=== PATIENT | male | born 1970 | race Caucasian/White ===

== ENCOUNTER 2025-02-25 08:08 | Outpatient (AMB) | payer OTHER, SELFPAY ==
--- NOTE | 2025-02-25 08:23 | A.OFFVIS_ITS ---
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 Patient was referred by his PCP to discuss surgical intervention due to vargus deformity. Patient reports his pain has been present for about 9 years. States after about 4 hours of activity he will have a sharp pain at the lateral aspect of knee and within the 5 hours swelling presents. No previous treatment. Denies injury. History of varicose veins. 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 He states after ab out 4 hrs he has severe pain along with swelling. He is a retired [employer] worker. 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 He has difficulty with stairs and prolonged walking. He is an active smoker , 1 1/2 ppd . Denies alcohol and rec drug use. The patient is at a point his knee pain is significantly impacting his ability to perform daily activities. He states he has gained about 100 lb due to his limited activity. 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 Full range of motion. Good quad strength. Neurovascularly intact. Results Reviewed Results Reviewed: X-rays of the left knee obtained in the office today and reviewed by me show severe osteoarthritis with valgus deformity. Assessment & Plan Assessment & Plan (1) Osteoarthritis of left knee: Code(s): M17.12 - Unilateral primary osteoarthritis, left knee Category: Medical Plan: We had a lengthy discussion about the extent of his OA and options available which include surgical intervention. He is interested in pursuing Total knee art hroplasty to improve his functional capacity and daily activities. I explained to him the procedure in detail, the hospital stay and details about post op rehab and precautions. He does understand all this and would like to move forward. I did put him in contact with our Nurse Navigator, Marianna who will set him up with pre op planning and book accordingly. He does understand he needs to lose weight and also quit smoking. I would like him to make an appointment with Dr. Bosch in 2 months. I did send him to physical therapy for prehab. All questions were answered. Orders: Orders XR knee LT 3V Today M25.562 - Pain in left knee PT Evaluation and Treatment Today M17.12 - Unilateral primary osteoarthritis, left knee Coding Level of Care Code New Pt Level 4 (27735) Complex EM visit Add On G2211 Diagnoses Osteoarthritis of left knee M17.12
[2025-02-25 08:27] VITALS: BMI 43.7
== END 2025-02-25 09:05 | disposition home or self-care (01) ==
LOC: HO.HOS 08:09
PROVIDERS: PCP Internal Medicine; Visit Provider Physician Assistant
DX: M17.12 Unilateral primary osteoarthritis, left knee (principal)
CPT/HCPCS: 99203

== ENCOUNTER → 2025-02-25 08:11 | Outpatient (BNV) | payer OTHER, SELFPAY | PROVIDERS: Visit Provider Radiology Diagnostic Radiology | DX: M25.562 Pain in left knee (principal) | CPT/HCPCS: 73562 ==

== ENCOUNTER 2025-02-25 11:07 | Outpatient (REF) | payer OTHER, SELFPAY ==
--- NOTE | ~2025-02-25 | XR_ITS ---
CLINICAL HISTORY: M25.562 - Pain in left knee 2 views of the left knee. AP views of the bilateral knees. Weight bearing views were obtained. COMPARISON: None provided. FINDINGS: Left knee: No appreciable suprapatellar joint effusion. Patellar enthesophyte present. Lateral joint space narrowing. Tricompartment osteophytes. Tibial spine spurring. Chondrocalcinosis. Visualized portions of the distal left femur, patella, and proximal tibia and fibula appear intact. Limited AP view of the right knee: Medial joint space narrowing. Osteophytes present along the medial and lateral joint spaces. Visualized portions of the distal right femur and proximal tibia and fibula appear intact. IMPRESSION: 1. No radiographic evidence of acute injury to the left knee. 2. [id number] degenerative changes of the left knee most pronounced along the lateral compartment. Chondrocalcinosis. This document has been electronically signed by: Ti Dean MD on 02/26/2025 13:35:17
== END 2025-02-25 11:08 | disposition home or self-care (01) ==
LOC: HO.HOSX 11:07
PROVIDERS: Visit Provider Physician Assistant
DX: M17.12 Unilateral primary osteoarthritis, left knee (principal)
CPT/HCPCS: 73562; 99202

== ENCOUNTER 2025-04-22 08:43 | Outpatient (AMB) | payer OTHER, SELFPAY ==
--- NOTE | 2025-04-22 08:49 | MHC.OFFVIS ---
Vital Signs 04/22/25 08:53 Height 6 ft 2 in Weight 350 lb BMI 44.9 Intake Visit Reasons: OV-Left knee-discuss TKA w/NE Intake Note: Ric is a 54 year old male who presents today for a follow up of his Left Knee OA, to discuss TKA. He was last seen and referred by Chepe Balbuena. Has started physical therapy with [facility]. BMI: 43.7 Current, everyday tobacco smoker. Allergies No Known Allergies (No Known Allergies*) Allergy (Verified 04/22/25 08:49) HPI HPI OV-Left knee-discuss TKA w/NE: Details: Ric is 54 year old male who presents today for a follow up of his Left Knee OA, to discuss TKA. He was last seen and referred by Chepe Balbuena. Has started physical therapy with [facility]. His BMI: 43.7 and he is a daily smoker. He has severe valgus malalignment of the left knee in his difficulty walking. He wants to get this fixed but we are trying to get his weight and cigarette smoking under control. 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 Results Reviewed Results Reviewed: I personally reviewed relevant radiographs. Valgus pattern tricompartmental osteoarthritis left knee Assessment & Plan Assessment & Plan (1) Osteoarthritis of left knee: Code(s): M17.12 - Unilateral primary osteoarthritis, left knee Category: Medical Plan: 54-year-old smoker with a BMI of near 45 who has severe left knee valgus pattern osteoarthritis. I do think he would benefit from arthroplasty. He has risk factors given his age, weight and smoking status I am concerned. He states he can lose the weight and it is more the smoking he is concerned about because he has a 40+ year history. I had a long conversation with him regarding different options and he will reach out to his PCP if he wants to gauge with that. In the meantime we will talk to him about surgery but duty is that he will be able to quit smoking as he seems skeptical that he even wants to but if he does he would be a good candidate for surgery Coding Level of Care Code Est Pt Level 3 (61525) Diagnoses Osteoarthritis of left knee M17.12
[2025-04-22 08:53] VITALS: BMI 44.9
== END 2025-04-22 09:24 | disposition home or self-care (01) ==
LOC: HO.HOS 08:44
PROVIDERS: PCP Internal Medicine; Visit Provider Orthopaedic Surgery
DX: M17.12 Unilateral primary osteoarthritis, left knee (principal)
CPT/HCPCS: 99213

== ENCOUNTER → 2025-04-22 08:43 | Outpatient (BNVA) | payer OTHER, SELFPAY | PROVIDERS: PCP Internal Medicine; Visit Provider Orthopaedic Surgery | DX: M25.562 Pain in left knee (principal); M17.12 Unilateral primary osteoarthritis, left knee | CPT/HCPCS: 99212 ==